=== PATIENT | female | born 1975 | race Caucasian/White ===

== ENCOUNTER 2019-11-30 16:04 | Inpatient (IN) | payer OTHER ==
[~2019-11-30] VITALS: Ht 165.1 cm; Wt 73.3 kg
--- NOTE | ~2019-11-30 | EMS ---
[address] [address] EMS Patient Care Report Name: LINO FOSTER Room #: PRE M.R.#: [id number] Admission: Attend Phys: Discharge: Date of : 75 Report #: [id number] THIS REPORT FOR: //name// Report Transmitted: 11/30/2019 16:03 EMS Care Summary [place], [place]/[facility] Incident [id number] @ 11/30/2019 15:18 Incident Location [address] [place] [address] Patient LINO FOSTER Female, 44 Years 1975 Patient Address [address] [place], [place] [id number] Patient History Behavioral/Psychiatric Disorder,Hypertension (HTN),Gastro-Esophageal Reflux Disease (GERD),Arthritis,Irritable Bowel Syndrome, Patient Allergies Codeine,Penicillin allergy,Adhesive Tape,Reglan,Cipro, Patient Medications Depakote, Seroquel, Levemir, Synthroid, Pepcid, Ativan, Protonix, Benztropine, Insulin, Losartan, Grimes, Melatonin, Ventolin, Chief Complaint altered mental status with high lithium level Disposition Transported No Lights/[place] Dispatch Reason Sick Person Transported To [facility] Narrative RN states that pt. has had a steady decline in activity over the last several [address] [address] EMS Patient Care Report Name: LINO FOSTER Room #: PRE CARLOS ALBERTO Hernandez#: [id number] Admission: Attend Phys: Discharge: Date of : 75 Report #: [id number] days so they had labs drawn and pt. Grimes level was 1.8 yesterday and toxic level for Grimes is 2.0 so they called 911. RN states that pt. has not received any Grimes since finding her levels so high. pt. states she is doing ok. pt. was laying semi fowlers in bed with RN present. pt. was in no distress. pt. was verbal but incomprehensible. pt. was able to follow very simple commands but unable to sit or stand without assistance. no change in pt. status enroute. Initial Vitals @15:37P: 86, @15:56P: 83,R: 20,BP: 88/59,Pain: 0/10,GCS: 11,SpO2: 92,Revised Trauma: 10, @15:35P: 86,R: 20,BP: 93/63,Pain: 0/10,GCS: 11,Glucose: 141,CO: 0,SpO2: 96,Revised Trauma: 11, Assessments @15:25MENTAL:Other,SKIN:Diaphoresis,Pale,HEENT:Head/Face: No Abnormalities,Eyes: No Abnormalities,Neck/Airway: No Abnormalities,LUNG SOUNDS:General: No Abnormalities,Left Upper: No Abnormalities,Right Upper: No Abnormalities,Left Lower: No Abnormalities,Right Lower: No Abnormalities,ABDOMEN:General: No Abnormalities,Left Upper: No Abnormalities,Right Upper: No Abnormalities,Left Lower: No Abnormalities,Right Lower: No Abnormalities,PELVIS//GI:No Abnormalities,EXTREMITIES:Left Arm: No Abnormalities,Right Arm: No Abnormalities,Left Leg: No Abnormalities,Right Leg: No Abnormalities,PULSE:NEURO:Slurred Speech, Impression Altered Mental Status Procedures @15:25ALS AssessmentResponse: Unchanged@15:373-Lead ECGResponse: Unchanged@15:37Saline Lock 0cc (20 ga) Site: Forearm-LeftResponse: UnchangedFailed@15:40Saline Lock 0cc (20 ga) Site: Antecubital-LeftResponse: UnchangedSucceeded Timeline 15:16,Call Received 15:16,Dispatch Notified 15:18,Dispatched 15:18,En Route 15:21,On Scene 15:25,At Patient 15:25,ALS Assessment,Response: Unchanged 15:35,BP: 93/63 M,PULSE: 86,RR: 20 R,SPO2: 96 Ox,ETCO2: ,B,PAIN: 0,GCS: 11, 15:37,Saline Lock 0cc 20 ga Site: Forearm-Left,Response: UnchangedFailed, [address] [address] EMS Patient Care Report Name: LINO FOSTER Room #: PRE ER M.R.#: [id number] Admission: Attend Phys: Discharge: Date of : 75 Report #: [id number] 15:37,3-Lead ECG,Response: Unchanged 15:37,BP: / M,PULSE: 86,RR: R,SPO2: Ox,ETCO2: ,BG: ,PAIN: ,GCS: , 15:40,Saline Lock 0cc 20 ga Site: Antecubital-Left,Response: UnchangedSucceeded, 15:41,Depart Scene 15:56,BP: 88/59 M,PULSE: 83,RR: 20 R,SPO2: 92 Ox,ETCO2: ,BG: ,PAIN: 0,GCS: 11, 15:57,At Destination 16:14,Call Closed Disclaimer v1.1 Copyright 2020 [facility] This EMS Care Summary contains data elements from the applicable legal record (which may be displayed differently). It is designed to provide pertinent information for the following purposes: continuity of care, clinical quality, and state data reporting. The complete legal record is available to ED staff and administrators of the receiving hospital in [employer]'s Patient Tracker. All data is provided "as is."
[2019-11-30 16:05] VITALS: BP 109/59
--- NOTE | 2019-11-30 16:20 | NUR ---
THIS SOFTWARE DEVELOPMENT COORDINATOR SPEAKS WITH DOMINIQUE AT PT'S SNF. SHE GIVES REPORT STATING THAT THEY BELIEVE HER TO HAVE A LITHIUM TOXICITY. REPORTS THAT THE PT HAS BEEN LETHARGIC AND HAD A LACK OF APPETITE X3 DAYS. SHE STRESSES TO THIS SOFTWARE DEVELOPMENT COORDINATOR THAT WHEN PT DOES HAVE MORE ENERGY SHE WILL ASK TO CALL HER PARENTS. THERE IS A COURT ORDER THAT STATES PT CAN NOT CONTACT HER PARENTS AND VICE VERSA. PT HAS PUBLIC [employer]
[2019-11-30] MEDS ORDERED: CLOZAPINE100 MG PO (16:22)
[2019-11-30] MEDS ORDERED: NOVOLOG100 UNIT/M SUBQ (16:22)
[2019-11-30] MEDS ORDERED: KRISTALOSE20 GM PO (16:23)
[2019-11-30] MEDS ORDERED: MELATONIN3 M1 PO (16:23)
[2019-11-30] MEDS ORDERED: LEVOXYL75 MCG PO (16:23)
[2019-11-30] MEDS ORDERED: SEROQUEL XR 30300 M1 PO (16:23)
[2019-11-30] MEDS ORDERED: LITHIUM CARBON300 M3 PO (16:24)
[2019-11-30] MEDS ORDERED: DEPAKOTE250 MG PO (16:24)
[2019-11-30] MEDS ORDERED: LEVEMIR100 UNIT/1 SUBQ (16:24)
[2019-11-30] MEDS ORDERED: FAMOTIDINE20 MG PO (16:24)
[2019-11-30] MEDS ORDERED: PANTOPRAZOLE SO40 M3 PO (16:25)
[2019-11-30] MEDS ORDERED: XIFAXAN550 M1 PO (16:25)
[2019-11-30 16:48] LABS: ABSOLUTE NEUTROPHILS 5.8 thou/uL (1.4-8.2); HEMATOCRIT 30.6 % (37.0-47.0); HEMOGLOBIN 10.2 gm/dL (12.0-15.0); LYMPHOCYTES 7.5 % (24.0-44.0); MCH 31.3 pg (26.0-34.0); MCHC 33.2 g/dL (28.0-37.0); MCV 94.4 fL (80.0-100.0); MONOCYTES 9.5 % (1.0-8.0); RBC 3.25 mil/uL (4.20-5.00); RDW 14.1 % (10.5-14.5)
[2019-11-30 16:51] LABS: ANION GAP 10 mmol/L (7-16); BUN 53 mg/dL (7-18); CALCIUM 9.6 mg/dL (8.5-10.1); CHLORIDE 109 mmol/L (98-107); CO2 26 mmol/L (21-32); CREATININE 2.9 mg/dL (0.6-1.0); GLUCOSE 127 mg/dL (74-106); POTASSIUM 3.9 mmol/L (3.5-5.1); SODIUM 145 mmol/L (136-145)
[2019-11-30 17:01] LABS: ALBUMIN 3.3 g/dL (3.4-5.0); MAGNESIUM 2.6 mg/dL (1.8-2.4); SGOT 51 U/L (15-37); SGPT 41 U/L (30-65); TOTAL BILIRUBIN 0.6 mg/dL (0.2-1.0); TOTAL PROTEIN 6.7 g/dL (6.4-8.2); TROPONIN-I <0.06 ng/mL (<0.06)
[2019-11-30 17:11] LABS: URINE BILIRUBIN 1+ (Negative); URINE BLOOD NEGATIVE (Negative); URINE CLARITY SL CLOUDY; URINE COLOR YELLOW; URINE GLUCOSE-RANDOM* NEGATIVE (Negative); URINE KETONES NEGATIVE (Negative); URINE LEUKOCYTES-REFLEX TRACE (Negative); URINE NITRITE-REFLEX NEGATIVE (Negative); URINE PROTEIN (DIPSTICK) 1+ (Negative); URINE SPECIFIC GRAVITY >= 1.030 (1.005-1.035)
[2019-11-30 17:12] LABS: ICTOTEST (BILI CONFIRMATORY) Negative (Negative)
[2019-11-30 17:18] LABS: ANISOCYTOSIS 1+
[2019-11-30 17:19] LABS: AMP/METHAMP Negative (Negative); BARBITURATES Negative (Negative); BENZODIAZEPINES Negative (Negative); COCAINE Negative (Negative); METHADONE Negative (Negative); OPIATES Negative (Negative); PCP Negative (Negative)
[2019-11-30 17:19] LABS: PLATELET COUNT 134 thou/uL (150-400)
[2019-11-30 17:20] LABS: SQUAMOUS 0-3 Few /LPF (0-3)
[2019-11-30 17:21] LABS: BACTERIA-REFLEX >30 Many /HPF (None Seen); CASTS None Seen /LPF (None Seen); CRYSTALS None Seen /LPF (None Seen); URINE RBC None Seen /HPF (0-2); URINE WBC-REFLEX 0-5 Rare /HPF (0-5)
[2019-11-30 18:19] LABS: TSH 0.303 uIU/mL (0.358-3.740)
[2019-11-30] MEDS ORDERED: SINGULAIR 10 MG10 M1 PO (19:01)
[2019-11-30] MEDS ORDERED: COZAAR 25 MG TA25 M1 PO (19:01)
[2019-11-30] MEDS ORDERED: QUETIAPINE FUMA50 MG PO (19:01)
[2019-11-30] MEDS ORDERED: ZETIA10 MG PO (19:02)
[2019-11-30] MEDS ORDERED: FENOFIBRATE160 MG PO (19:02)
[2019-11-30] MEDS ORDERED: DICYCLOMINE HCL20 MG PO (19:02)
[2019-11-30] MEDS ORDERED: SLOW FE142 MG PO (19:03)
[2019-12-01] VITALS (7 sets, daily range): BP systolic 97–147; BP diastolic 52–74
--- NOTE | 2019-12-01 07:46 | EKG ---
[facility] [place] [address] ELECTROCARDIOGRAM REPORT Name: LINO FOSTER Room #: 170-16 ADM IN M.R.#: [id number] Admission: 11/30/19 Attend Phys: Monik Jackson MD Discharge: Date of : 75 Report #: [id number] THIS REPORT FOR: cc: Patricia Redding MD, Janet MD Santiago, Patrick MD [facility] ~ THIS REPORT FOR: //name// [facility] ED Test Date: 2019-11-30 Test Time: 17:03:18 Pat Name: LINO FOSTER Department: Room: 170 Gender: F Machine Repairman: marissa george : 1975 Requested By: Cornel Thorne Order Number: [id number] MD: Butch Flores Measurements Intervals [place] Rate: 78 P: 32 WI: 129 QRS: -29 QRSD: 128 T: 41 QT: 459 QTc: 523 Interpretive Statements Sinus rhythm Right bundle branch block No previous ECG available for comparison Electronically Signed On 12-01-2019 7:45:50 CDT by Butch Flores [email or web address] <ELECTRONICALLY SIGNED> By: Butch Flores MD, FACC 12/01/19 0745 02 02 Butch Flores MD, FAC /EPI
[2019-12-01 07:50] LABS: ALBUMIN 2.9 g/dL (3.4-5.0); CALCIUM 8.7 mg/dL (8.5-10.1); CREATININE 2.6 mg/dL (0.6-1.0); POTASSIUM 3.9 mmol/L (3.5-5.1); TOTAL BILIRUBIN 0.5 mg/dL (0.2-1.0)
--- NOTE | 2019-12-01 08:07 | NUR ---
ASSUMED PATIENT CARE AT 0000. PATIENT DISORIENTED AND LETHARGIC THROUGHOUT SHIFT. PERRLA, WITH PATIENT ROUSABLE TO STIMULATION. VITAL SIGNS STABLE WITH NURSE NOT RECEIVING PAIN OR NAUSEA ON BEHALF OF PATIENT. SEIZURE PRECAUTIONS INITIATED PER ORDER. CRITICAL HIGH LITHIUM LEVEL CALLED TO PROVIDER. LARGE AMOUNT OF URINARY INCONTINENCE WITH PATIENT CLEANED AND PROVIDED SKIN CARE. FULL REPORT GIVEN TO ONCOMING NURSE.
[2019-12-01 13:21] LABS: MAGNESIUM 2.5 mg/dL (1.8-2.4); PHOSPHORUS 3.6 mg/dL (2.5-4.9)
[2019-12-01 13:38] LABS: URINE CREATININE-RANDOM* 256.6 mg/dL
[2019-12-02 00:12] VITALS: BP 93/59
[2019-12-02 01:06] LABS: GLYCOHEMOGLOBIN (HGB A1C) 5.1 % (4.8-5.6)
--- NOTE | 2019-12-02 01:44 | NUR ---
PT ADMITTED FROM ED WITH AMS AND LITHIUM TOXICITY.PT ALERT ADN ORIENTED TO SELF AND TIME(2019).DENIES PAIN OR ANY DISTRESS.PT FOLLOWS SIMPLE COMMANDS.PT HAS SOME COMMUNICATION DEFICIT AND CONFUSION.ADMISSION ASSESSMENT COMPLETED.SEIZURES PRECAUTIONS INPLACE.PT DENIES ANY NEEDS AT THIS TIME.WILL CONT TO MONITOR PER POC.
[2019-12-02 04:03] VITALS: BP 98/62
[2019-12-02 05:50] LABS: ALBUMIN 2.7 g/dL (3.4-5.0); CALCIUM 8.8 mg/dL (8.5-10.1); CREATININE 1.7 mg/dL (0.6-1.0); PHOSPHORUS 2.8 mg/dL (2.5-4.9); POTASSIUM 3.7 mmol/L (3.5-5.1)
[2019-12-02 11:50] VITALS: BP 126/76
--- NOTE | 2019-12-02 13:26 | NUR ---
Patient admits from [facility] with lithium toxicity levels/AMS. Patient could not recall where is located. She decribes to caset the food she was eating and requested more deon. Attemted to call facility but admissions mailbox full and cannot leave a message. Called [facility] again and left message in someones mailbox not identified. Sp with deputy PA Soo Jin who reports you can ask her who her PA is and she knows as Soo. She also knows Soo has bright red hair. She also reports patient would be able to look around room and state she is in a hospital. Updated faxed information to PA office and [facility]. If should dc over weekend please call [facility] at [phone]. Alert patient is dc and if they can accept over weekend. If can accept request what number to fax orders. If can accept call Soo Roach at emergency number [phone] to alert of dc. Fax orders to Soo at [phone]. If need transport call [facility] at [phone].
--- NOTE | 2019-12-02 16:40 | NUR ---
DOZES OFF AND ON BUT ALERT WHEN AWAKE. CALM, PLEASANT. USING CALL LIGHT APPROPRIATELY. ASSISTED TO BR PRN. SR WITH BBB PER TELE. WORKING WITH PT AND OT, WALKS IN THE HALLS WITH STANDBY ASSIST. WILL CONTINUE TO FOLLOW CLOSELY.
[2019-12-02 20:00] VITALS: BP 135/67
--- NOTE | 2019-12-03 03:12 | NUR ---
ASSUMED PT CARE AROUND 1930. AXOX2. PLEASANT AND COOPERATIVE. VSS. NO S/S ACUET DISTRESS NOTED OR REPORTED AT THIS TIME. WILL CONT TO MONITOR FOR ANY CHANGES IN CONDITION.
[2019-12-03 06:01] LABS: ALBUMIN 2.3 g/dL (3.4-5.0); CALCIUM 8.6 mg/dL (8.5-10.1); CREATININE 1.4 mg/dL (0.6-1.0); PHOSPHORUS 2.7 mg/dL (2.5-4.9); POTASSIUM 3.4 mmol/L (3.5-5.1)
[2019-12-03 07:35] VITALS: BP 106/70
[2019-12-03] MEDS ORDERED: GLIPIZIDE 5 MG T5 MG PO (12:59)
[2019-12-03] MEDS ORDERED: KEFLEX500 M1 PO (13:00)
[2019-12-03 15:23] VITALS: BP 116/80
[2019-12-03 17:34] VITALS: BP 116/80
--- NOTE | 2019-12-03 17:39 | NUR ---
ASSUMED CARE OF PT AT SHIFT CHANGE. ASSESSMENT CHARTED. MEDS GIVEN PER MAR. PT A&OX3, DOES NOT KNOW WHEN IT IS. PT UP TO BSC, NO EPISODES OF INCONTINENCE. COVID SWAP COMPLETE. POSSIBLE DC THURSDAY BACK TO [facility]. WILL CONTINUE TO MONITOR AND FOLLOW POC.
[2019-12-03 20:01] VITALS: BP 128/89
[2019-12-04 05:00] VITALS: BP 128/57
[2019-12-04 05:04] VITALS: BP 106/72
--- NOTE | 2019-12-04 06:08 | NUR ---
ASSUMED PATIENT CARE AT 1845. VITAL SIGNS STABLE WITH PATIENT HAVING NO COMPLAINTS OF PAIN OR NAUSEA. ORIENTED TO SELF AND SITUATION, PATIENT WAS NOT IMPULSIVE AND SHOWED THE ABILITY TO PARTICIPATE IN CARE. GOOD URINARY OUTPUT, PATIENT WAS CONTINENT AT TIMES. UP WITH ASSISTANCE MULTIPLE TIMES INCIDENT FREE, PATIENT IS STILL CONSIDERED HIGH FALL RISK. CONTINUE PLAN OF CARE.
[2019-12-04 06:32] LABS: ALBUMIN 2.4 g/dL (3.4-5.0); CALCIUM 8.6 mg/dL (8.5-10.1); CREATININE 1.5 mg/dL (0.6-1.0); PHOSPHORUS 2.7 mg/dL (2.5-4.9); POTASSIUM 3.5 mmol/L (3.5-5.1)
[2019-12-04 07:31] VITALS: BP 106/53
--- NOTE | 2019-12-04 07:50 | NUR ---
REC REPORT FROM STOPBOARD ASSEMBLER RN FOR ANOTHER ONCOMING RN, PUT NAME ON BOARD, SAID DORI TO PT, AND GAVE REPORT WHEN OTHER RN ARRIVED.
--- NOTE | 2019-12-04 10:29 | NUR ---
PT CARE ASSUMED AT 0700. DROWSY BUT ORIENTED x3. PT/OT/ST ON BOARD. Q2 TURNS. PT IS VERY SLEEPY TODAY. NSR AND BBB ON MONITOR. ON SEIZURE PRECAUTIONS. TAKES MEDICATIONS CRUSHED WITH APPLESAUCE. ON ROOM AIR. BED IS PADDED, 4 RAILS UP. PT COVID SWABBED. IV PATENT WITH NO REDNESS OR EDEMA, SALINE LOCKED. INCONTINENT TO BOWEL AND BLADDER. LAST BM 12/01. ACHS WITH NO COVERAGE NEEDED THIS AM. FALL PROTOCOL IN PLACE. CALL LIGHT IN REACH. WILL CONTINUE TO MONITOR.
[2019-12-04 21:01] VITALS: BP 131/86
[2019-12-05 04:39] LABS: ALBUMIN 2.3 g/dL (3.4-5.0); CALCIUM 8.5 mg/dL (8.5-10.1); PHOSPHORUS 2.7 mg/dL (2.5-4.9)
[2019-12-05 04:40] LABS: POTASSIUM 3.6 mmol/L (3.5-5.1)
[2019-12-05 05:48] VITALS: BP 132/67
--- NOTE | 2019-12-05 07:28 | NUR ---
ASSUMED CARE OF PATIENT AT 1900; ALERT TO SELF/SITUATION/BUT CONFUSED AT TIMES; UP TO BS WITH STBY ASSIST; RESTED QUIETLY THROUGHOUT MOST OF THE NOC/HARD TO ROUSE IN THE MORNING FOR MEDS; NO C/O OF PAIN; PROGRESSING WELL TOWARD DISCHARGE GOALS AND POC/ PLAN IS FOR POSSIBLE DISCHARGE TO [facility] TODAY.
[2019-12-05 08:04] VITALS: BP 101/68
[2019-12-05 10:07] VITALS: BP 101/68
--- NOTE | 2019-12-05 13:32 | NUR ---
PT DISCHARGING TODAY BACK TO [facility] FAXED DC ORDERS/SUMMARY TO FACILITY SPOKE WITH MIGUEL SHE RECEIVED ORDERS THEY DO NOT HAVE TRANSPORT AVAILABLE TODAY SO I ARRANGED TRANSPORT WITH [facility] FOR [phone]. NOTIFIED AND FAXED DC ORDERS TO PT'S [facility]ARD[facility] ([place]) RECEIVED CONFIRMATION. NOTIFIED UNIT TIME OF TRANSPORT AND CHART COPY PER US. RN TO CALL REPORT TO [phone].
[2019-12-05 14:04] VITALS: BP 120/80
--- NOTE | 2019-12-05 15:15 | NUR ---
ASSUMED CARE PT SHIFT CHANGE. ASSESSMENT CHARTED.MEDS GIVEN PER APR. PT ALERT AND ORIENTED X2, DROWSY THIS AM BUT MORE AWAKE THROUGH THE DAY. PT UP WITH PHYS THERAPY TOLERATING VERY WELL. PT UP TO BSC WITH MINIMAL ASSISTANCE. PT TEARFUL ABOUT DISCHARGE AT TIMES BUT REASSURED CARE WILL BE PROVIDED. PT TAKING MEDS CRUSHED IN APPLESAUCE TOLERATING WELL. TOLERATES MECH CHOPPED DIET WELL WITH NO S/SX ASPIRATION. IV REMOVED. TELE REMOVED. PT LEFT UNIT VIA WHEEL CHAIR VAN WITH ALL BELONGINGS. ATTEMPTED TO CALL REPORT AT 1511, STAFF TO RETURN CALL FOR REPORT THE NUURE WAS BUSY.
--- NOTE | 2019-12-06 17:19 | NUR ---
Call back rec'd from Yesy at [facility] stating that they did not recieve any chart copy or clinical documentation for the pt. DC summary/instructions, labs, mar, h/p, ppn, covid neg tests, and therapy notes faxed to Yesy.
== END 2019-12-05 15:05 | DRG 640 ==
LOC: ER 16:04 → 2N 19:03 → EROBS 19:03 → 3W 21:17 → TBA 21:39 → EROBS 21:40 → 2N 12-01 18:15
PROVIDERS: Emergency Medicine; Hospitalist; Internal Medicine Nephrology; Nurse Practitioner Family; ADMIT Hospitalist; ATTEND Hospitalist
DX: E86.0 Dehydration (principal); G93.41 Metabolic encephalopathy; N17.9 Acute kidney failure, unspecified; T43.595A Adverse effect of other antipsychotics and neuroleptics, initial encounter; K21.9 Gastro-esophageal reflux disease without esophagitis; I10 Essential (primary) hypertension; J45.909 Unspecified asthma, uncomplicated; E11.9 Type 2 diabetes mellitus without complications; M19.90 Unspecified osteoarthritis, unspecified site; K58.9 Irritable bowel syndrome, unspecified; G40.909 Epilepsy, unspecified, not intractable, without status epilepticus; E03.9 Hypothyroidism, unspecified; R13.10 Dysphagia, unspecified; F25.9 Schizoaffective disorder, unspecified; E87.0 Hyperosmolality and hypernatremia; F31.9 Bipolar disorder, unspecified; Z20.828 Contact with and (suspected) exposure to other viral communicable diseases; Z79.4 Long term (current) use of insulin; Z79.899 Other long term (current) drug therapy; Z88.1 Allergy status to other antibiotic agents; Z88.5 Allergy status to narcotic agent; Z88.0 Allergy status to penicillin; Z88.8 Allergy status to other drugs, medicaments and biological substances; Z91.09 Other allergy status, other than to drugs and biological substances; Y92.89 Other specified places as the place of occurrence of the external cause
CPT/HCPCS: 10081